=== PATIENT | male | born 1960 | race Caucasian/White ===

== ENCOUNTER 2023-08-03 08:27 | Outpatient (CLI) | payer BC, SELFPAY ==
--- OUTSIDE RECORDS SUMMARY | 2023-08-03 08:29 | XMS_ITS | Referral Summary ---
Author Name Unknown Organization [facility] Address [address] [place] [id number] Care Team Providers Care Manager Action Name Role Phone No Ref-Primary, Physician Primary Care Provider Allergies Active Allergy Reactions Criticality Noted Date Comments Amoxicillin 10/21/2021 Penicillins Itching,Swelling,Oth er (See Comments) Possible reactions: Swelling and Itchy throat. Bupropion Swelling Medications Medication Sig Dispensed Refills Start Date End Date Status albuterol (PROVENTIL HFA;VENTOLIN HFA) 90 mcg/actuation inhaler [ALBUTEROL (PROVENTIL HFA;VENTOLIN HFA) 90 MCG/ACTUATION INHALER] Inhale 1-2 puffs every 4 (four) hours as needed for wheezing. Every 4-6 hours as needed. 0 09/18/2015 Active NON FORMULARY [NON FORMULARY] Med Names: Fermented cod liver oil, calcium lactate, Parasympathetic nervous system nutritional support, Vessel care, Energy iodine (5 drops), cayenne pepper. 0 09/18/2015 Active oxyCODONE-acetamino phen (PERCOCET) 5-325 mg per tablet [OXYCODONE-ACETAMIN OPHEN (PERCOCET) 5-325 MG PER TABLET] Take 1-2 tablets by mouth every 4 (four) hours as needed for pain. 0 09/18/2015 Active atorvastatin (LIPITOR) 80 MG tabletIndications:A cute CVA (cerebrovascular accident) (H) [ATORVASTATIN (LIPITOR) 80 MG TABLET] Take 1 tablet (80 mg total) by mouth bedtime. 30 tablet 11 09/19/2015 Active Additional Information Patient not taking.Reported on 10/21/2021 aspirin 81 MG EC tabletIndications:A cute CVA (cerebrovascular accident) (H) [ASPIRIN 81 MG EC TABLET] Take 1 tablet (81 mg total) by mouth daily. 30 tablet 11 09/19/2015 Active Additional Information Patient not taking.Reported on 10/21/2021 mometasone (ASMANEX TWISTHALER) 110 MCG/INH inhaler Daily 0 06/18/2020 Active tadalafil (CIALIS) 10 MG tablet .as Direc as needed 0 06/18/2020 Act amado Active Problems Problem Noted Date Diagnosed Date Acute CVA (cerebrovascular accident) 09/18/2015 Social History Tobacco Use Types Packs/Day Years Used Date Smoking Tobacco: Former Smokeless Tobacco: Never Tobacco Cessation:Counseling Given: Yes Adolescent Education Answer Date Record ed Getting School Help Needed Not on file 03/07 Sex and Gender Information Value Date Recorded Sex Assigned at Not on file Gender Identity Not on file Sexual Orientation Not on file Last Filed Vital Signs Vital Sign Reading Time Taken Comments Blood Pressure 120/74 10/21/2021 10:48 AM CDT Pulse - - Temperature - - Respiratory Rate - - Oxygen Saturation - - Inhaled Oxygen Concentration - - Weight 85.7 kg (189 lb) 10/21/2021 10:48 AM CDT pt reported Height 177.8 cm (5' 10) 10/21/2021 10:48 AM CDT Body Mass Index 27.12 10/21/2021 10:48 AM CDT Plan of Treatment Not on file Care Teams Manager Action Relationship Specialty Start Date End Date No Ref-Primary, Physician PCP - General 10/21/21
--- OUTSIDE RECORDS SUMMARY | 2023-08-03 08:29 | XMS_ITS | Clinical Summary ---
Author Name Unknown Organization [facility] Address [place], [place] [address] Care Team Providers Care Electro Mechanical Engineer Name Role Phone Pcp, No Primary Care Provider Unavailabl e Allergies Active Allergy Reactions Criticality Noted Date Comments Bupropion Edema High 07/17/2008 Wellbutrin Penicillins Hives,Edema Medium 07/17/2008 Medications Medication Sig Dispensed Refills Start Date End Date Status albuterol HFA (PROAIR HFA) 90 mcg/Actuation inhaler Inhale 2 Puffs by mouth 4 times daily if needed. 1 Inhaler 2 11/12/2010 Active clindamycin (CLEOCIN) 150 mg capsule 0 03/29/2015 Active Active Problems Problem Noted Date Diagnosed Date Mixed hyperlipidemia 12/19/2010 Family history of premature CAD 11/12/2010 Overview: STRESS ECHO 12/03: NORMAL Asymptomatic varicose veins 12/30/2009 Overview: left calf, 2009. Immunizations Name Administration Dates Next Due COVID-19 vaccine (Moderna 100mcg/0.5mL) PF MDV 11/19/2020,10/22/2020 COVID-19 vaccine (Moderna Lui markie 50mcg/0.25mL) PFASTON 05/29/2021 Td (Age >=7 Years) 12/12/2002 Tdap 04/03/2015 Family History Medical History Relation Name Comments Cancer Brother 2 Brain tumor Heart Disease Brother 3 CABG @ 49, [place] widowmaker Heart Disease Father [place] at 56 Diabetes Maternal Grandmother Good Health Mother Relation Name Status Comments Brother 1 Brain Tumor Brother 2 Brother 3 Father Maternal Grandmother Mother Social History Tobacco Use Types Packs/Day Years Used Date Smoking Tobacco: Former Cigarettes 2 27 0 06/14/1973 - 06/14/2000 Smokeless Tobacco: Former Alcohol Use Standard Drinks/Week Comments No 0 (1 standard drink = 0.6 oz pur e alcohol) Social Connections Answer Date Recorded Frequency of Communication with Friends and Fami ly Not on file 06/14/2021 Financial Resource Strain Answer Date R ecorded Difficulty of Paying Living Expenses Not on file 06/14/2021 Difficulty of Paying Living Expenses Not on file 06/14/2021 Sex and Gender Information Value Date Recorded Sex Assigned at Not on file Gender Identity Not on file Sexual Orientation Not on file Obstetrics History Last Filed Vital Signs Vital Sign Reading Time Taken Comments Blood Pressure 108/66 04/03/2015 1:09 PM CDT Pulse 76 04/03/2015 2:11 PM CDT Temperature 36.7 ??C (98 ??F) 04/03/2015 1:09 PM CDT Respiratory Rate 20 04/03/2015 1:09 PM CDT Oxygen Saturation 97% 04/03/2015 2:11 PM CDT Inhaled Oxygen Concentration - - Weight 78.6 kg (173 lb 4.8 oz) 04/03/2015 1:09 P M CDT Height 177.8 cm (5' 10) 04/03/2015 1:09 PM CDT Body Mass Index 24.87 04/03/2015 1:09 PM CDT Plan of Treatment Health Maintenance Due Date Last Done Comments Depression screening for age 12+ 1974 HIV for age 15-65 1977 BMI (ht and wt on same day) for age 18+ 1980 Hepatitis C screening for ag e 18-79 1980 Colonoscopy through age 75 2007 Zoster (shingles) series for age 50+ (1 of 2) 2012 Lipids for age 45-75 12/20/2015 12/19/2010, 01/01/2010, 07/17/2008 COVID-19 vaccine series (2022-24 season) 2023 05/29/2021, 11/19/2020, 10/22/2020 Influenza for age 50-64 02/12/2023 Tetanus booster 04/03/2025 04/03/2015, 12/12/2002 Tdap Completed 04/03/2015 Pneumococcal series for age 6-64 Aged Out No longer eligible b ased on patient's age to complete this topic Care Teams Electro Mechanical Engineer Relationship Specialty Start Date End Date Pcp, No . PCP - General 10/21/20
--- OUTSIDE RECORDS SUMMARY | 2023-08-03 08:29 | XMS_ITS | Clinical Summary ---
Author Name Unknown Organization [facility] Address [address] [place] [id number] Care Team Providers Care Poultry Offal Icer Name Role Phone No Ref-Primary, Physician Primary [...] Diagnosed Date Acute CVA (cerebrovascular accident) 09/18/2015 Family History Medical History Relation Comments Coronary Artery Disease Brother Testicular cancer Brother Heart Disease Father Relation Status Comments Brother Father Social History Tobacco Use Types Packs/Day Years [...] 10/21/2021 10:48 AM CDT Plan of Treatment Health Maintenance Due Date Last Done Comments ADVANCE CARE PLANNING 1962 ANNUAL REVIEW OF HM ORDERS 1962 CT COLONOGRAPHY 1962 FIT 1962 FLEX SIG 1962 GLUCOSE 1962 YEARLY PREVENTIVE VISIT 1962 sDNA (Cologuard) 1962 COLONOSCOPY 1972 COLORECTAL CANCER SCREENING 1972 HIV SCREENING 1977 HEPATITIS C SCREENING 1980 LUNG CANCER SCREENING 2012 ZOSTER IMMUNIZATION (1 of 2) 2012 LIPID 09/18/2016 09/19/2015 RSV VACCINE ( & 60+ ) (1 - 1-dose 60+ series) 2022 COVID-19 Vaccine (4 - 2022-2 4 season) 2023 05/29/2021, 11/19/2020, 10/22/2020 INFLUENZA VACCINE (#1) 2023 PHQ-2 (once per calendar year) 2023 DTAP/TDAP/TD IMMUNIZATION (2 - Td or Tdap) 04/03/2025 04/03/2015, 12/12/2002 HPV IMMUNIZATION Aged Out No longer e ligible based on patient's age to complete this topic IPV IMMUNIZATION Aged Out No longer e ligible based on patient's age to complete this topic MENINGITIS IMMUNIZATION Aged Out No l onger eligible based on patient's age to complete this topic Pneumococcal Vaccine: Pediatrics (0 to 5 Years) and At-Risk Patients (6 to 64 Years) Aged Out No longer eligible b ased on patient's age to complete this topic RSV MONOCLONAL ANTIBODY Aged Out No l onger eligible based on patient's age to complete this topic Care Teams Poultry Offal Icer Relationship Specialty Start Date End Date No Ref-Primary, Physician PCP - General 10/21/21
== END 2023-08-03 08:28 | disposition home or self-care (01) ==
PROVIDERS: PCP Family Medicine; Visit Provider Family Medicine
DX: E78.2 Mixed hyperlipidemia (principal); Z12.5 Encounter for screening for malignant neoplasm of prostate
CPT/HCPCS: 80053; 80061; G0103